=== PATIENT | female | born 1950 | race Caucasian/White ===

== ENCOUNTER → 2017-10-18 | Outpatient (CLI) | payer OTHER, MEDICAID | LOC: BHFA 13:30 | PROVIDERS: ATTEND Internal Medicine Cardiovascular Disease | DX: R94.31 Abnormal electrocardiogram [ECG] [EKG] (principal); R07.9 Chest pain, unspecified; R00.2 Palpitations; I63.9 Cerebral infarction, unspecified ==

== ENCOUNTER → 2017-10-29 | Outpatient (CLI) | payer OTHER, MEDICAID | LOC: BHLMT 14:45 | PROVIDERS: ATTEND Internal Medicine Interventional Cardiology | DX: R07.9 Chest pain, unspecified (principal); R00.2 Palpitations; R94.31 Abnormal electrocardiogram [ECG] [EKG] | CPT/HCPCS: 93225-PO; 93226-PO; 93306-PO ==